=== PATIENT | female | born 1980 | race Caucasian/White ===

== ENCOUNTER 2024-06-05 13:18 | Emergency (ER) | payer SELFPAY ==
[~2024-06-05] VITALS: Ht 160 cm; Wt 75.0 kg
[2024-06-05 13:27] VITALS: O2SAT 99
[2024-06-05] MEDS: KETOROLAC 30MG/ML VIAL IM STA (15:23)
[2024-06-05] MEDS ORDERED: NAPR-681 PO (17:16)
[2024-06-05 17:59] VITALS: BP 132/68; PULSE 71; RESP 16; TEMP 36.72516; O2SAT 100
== END 2024-06-05 17:59 | disposition home or self-care (01) ==
LOC: EDBD 13:44 → ER 13:44
DX: M25.561 Pain in right knee (principal); M25.562 Pain in left knee; Z88.0 Allergy status to penicillin; W01.0XXA Fall on same level from slipping, tripping and stumbling without subsequent striking against object, initial encounter; Y93.89 Activity, other specified; Y92.89 Other specified places as the place of occurrence of the external cause; Y99.8 Other external cause status
CPT/HCPCS: 99284; 72110; 73562; 96372; J1885